=== PATIENT | male | born 1985 | race African-American/Black ===

== ENCOUNTER 2017-10-31 14:34 | Emergency (ER) | payer SELFPAY ==
[2017-10-31] MEDS: diazePAM 5 MG TABLET PO (16:47)
[2017-10-31] MEDS: HYDROcodone/APAP 5/325MG 1 TAB TABLET PO (16:47)
[2017-10-31] MEDS: NAPROXEN 500 MG TABLET PO (16:48)
[2017-10-31] MEDS: predniSONE 10 MG TABLET PO (16:48)
== END 2017-10-31 16:50 | disposition home or self-care (01) ==
LOC: ER 14:34
DX: M54.5 Low back pain (principal); M19.90 Unspecified osteoarthritis, unspecified site
CPT/HCPCS: 99284; J7512

== ENCOUNTER 2018-08-07 11:17 | Emergency (ER) | payer SELFPAY ==
[~2018-08-07] VITALS: Ht 182.9 cm; Wt 97.5 kg
[~2018-08-07 11:17] MED LIST: CYCL10TA2 PO; HYDR-3164 PO; METH4TAB2 PO; NAPR500T8 PO
[2018-08-07 11:44] VITALS: BP 106/68
[2018-08-07] MEDS ORDERED: KETOROLAC 60 MG/2 ML VIAL. IM ONE (12:30)
--- NOTE | 2018-08-07 13:01 | RAD ---
Examination: 2 views of the lumbar spine HISTORY: History of back injury, back pain COMPARISON: None available FINDINGS: The vertebral body heights appear to be maintained. No evidence of listhesis identified. Mild intervertebral disc height loss identified at L5-S1 vertebral level. The facets are well aligned. There is a 6.5 mm calcification projecting over the left renal shadow probably intrarenal collecting system calculus. IMPRESSION: 1. Mild degenerative changes L5-S1 vertebral level. 2. 6.5 mm calculus left kidney. Electronically signed by: Charli Sarah MD (08/07/2018 12:58 PM) [place] [id number]
[2018-08-07] MEDS ORDERED: CYCL5TAB PO (13:16)
[2018-08-07] MEDS ORDERED: MELO7.5T5 PO (13:16)
--- NOTE | 2018-08-07 13:17 | PHYS DOC ---
Past Medical History Past Medical History: Arthritis Past Surgical History: No Surgical History Additional Information: 0.25 PPD Alcohol Use: Occasionally Drug Use: None Adult General Chief Complaint Chief Complaint: BACK PAIN OR INJURY HPI HPI Patient is a 32 year old male who presents with low back pain 2 days after he lifted something heavy at work. He denies spontaneous loss of bowel or bladder, sound numbness or foot drop. He states that he has some chronic back pain issues. Review of Systems Review of Systems Constitutional: Denies fever or chills [] Eyes: Denies change in visual acuity, redness, or eye pain [] HENT: Denies nasal congestion or sore throat [] Respiratory: Denies cough or shortness of breath [] Cardiovascular: No additional information not addressed in HPI [] GI: Denies abdominal pain, nausea, vomiting, bloody stools or diarrhea [] : Denies dysuria or hematuria [] Musculoskeletal: See history of present illness Integument: Denies rash or skin lesions [] Neurologic: Denies headache, focal weakness or sensory changes [] Endocrine: Denies polyuria or polydipsia [] All other systems were reviewed and found to be within normal limits, except as documented in this note. Current Medications Current Medications Current Medications Medications (Trade) Dose Ordered Sig/Adis Start Time Stop Time Status Last Admin Dose Admin Ketorolac Tromethamine (Toradol Im) 60 mg 1X ONCE 08/07/18 12:30 08/07/18 12:31 DC 08/07/18 13:03 60 MG Allergies Allergies Allergies Coded Allergies Type Severity Reaction Last Updated Verified No Known Drug Allergies 10/31/17 No Physical Exam Physical Exam Constitutional: Well developed, well nourished, no acute distress, non-toxic appearance. [] Cardiovascular:Heart rate regular rhythm, no murmur [] Lungs & Thorax: Bilateral breath sounds clear to auscultation [] Abdomen: Bowel sounds normal, soft, no tenderness, no masses, no pulsatile masses. [] Skin: Warm, dry, no erythema, no rash. [] Back: No point spinal tenderness or step offs noted, no CVA tenderness. [] Extremities: No tenderness, no cyanosis, no clubbing, ROM intact, no edema. [] Neurologic: Alert and oriented X 3, normal motor function, normal sensory function, no focal deficits noted. [] Psychologic: Affect normal, judgement normal, mood normal. [] Current Patient Data Vital Signs Vital Signs Date Time Temp Pulse Resp B/P (MAP) Pulse Ox O2 Delivery O2 Flow Rate FiO2 08/07/18 11:44 96.8 73 20 106/68 (81) 98 Room Air 96.8 EKG EKG [] Radiology/Procedures Radiology/Procedures [] PATIENT: JONN RUSH ACCOUNT: [id number] : 1985 LOCATION: ER AGE: 32 SEX: M EXAM STATUS: REG ER ORD. PHYSICIAN: CELESTINE SANDERS APRN REASON: back pain to midspine PROCEDURE: LUMBAR SPINE 2-3V Examination: 2 views of the lumbar spine HISTORY: History of back injury, back pain COMPARISON: None available FINDINGS: The vertebral body heights appear to be maintained. No evidence of listhesis identified. Mild intervertebral disc height loss identified at L5-S1 vertebral level. The facets are well aligned. There is a 6.5 mm calcification projecting over the left renal shadow probably intrarenal collecting system calculus. IMPRESSION: 1. Mild degenerative changes L5-S1 vertebral level. 2. 6.5 mm calculus left kidney. Electronically signed by: Charli Sarah MD (08/07/2018 12:58 PM) [facility] DICTATED and SIGNED BY: CHARLI SARAH MD DATE: 08/07/18 1256 Course & Med Decision Making Course & Med Decision Making Pertinent Labs and Imaging studies reviewed. (See chart for details) []The patient was given Toradol in the emergency department for pain. Dragon Disclaimer Dragon Disclaimer This electronic medical record was generated, in whole or in part, using a voice recognition dictation system. Departure Departure Impression: Primary Impression: Back pain Disposition: 01 HOME, SELF-CARE Condition: STABLE Referrals: NO PCP (PCP) Patient Instructions: Chronic Back Pain Additional Instructions: Follow-up with primary care for further evaluation of this chronic pain. Take the medication as prescribed. Make sure you have food on your stomach when you take the Mobic. If worsening return to the emergency department. Scripts Meloxicam (MOBIC) 7.5 Mg Tablet 1 TAB PO DAILY for back pain, #30 TAB 1 Refill Prov: CELESTINE SANDERS APRN 08/07/18 Cyclobenzaprine Hcl (CYCLOBENZAPRINE HCL) 5 Mg Tablet 1 TAB PO QHS for back pain, #15 TAB Prov: CELESTINE SANDERS APRN 08/07/18 Attending Signature Attending Signature I have reviewed the PA/GRAPHITE PAN DRIER TENDER's note and plan of care. I was available for consultation as needed during the patient's visit in the emergency department. I agree with the clinical impression, plan, and disposition. CELESTINE SANDERS APRN Aug 07, 2018 13:17 DOMINGO GUO DO Aug 08, 2018 14:07
== END 2018-08-07 13:27 | disposition home or self-care (01) ==
LOC: ER 11:17
DX: M54.5 Low back pain (principal); G89.29 Other chronic pain; N20.0 Calculus of kidney; M47.897 Other spondylosis, lumbosacral region; F17.200 Nicotine dependence, unspecified, uncomplicated; M19.90 Unspecified osteoarthritis, unspecified site
CPT/HCPCS: 72100; 96372; 99283; J1885

== ENCOUNTER 2019-04-22 14:43 | Emergency (ER) | payer SELFPAY ==
[~2019-04-22] VITALS: Ht 180.3 cm; Wt 108.9 kg
[~2019-04-22 14:43] MED LIST changes: +CIPR500T94 PO; +CYCL5TAB PO; +MELO7.5T5 PO; +OXYC1TAB15 PO
[2019-04-22] MEDS ORDERED: IV NORMAL SALINE 1000ML BAG 1,000 ML IV SCH (15:25)
[2019-04-22] MEDS ORDERED: fentaNYL PF VIAL 100 MCG/2 ML VIAL IV ONE (15:30)
[2019-04-22 15:43] LABS: BASO # 0.1 x10^3/uL (0.0-0.2); BASO % 1 % (0-3); EOS # 0.2 x10^3/uL (0.0-0.7); EOS % 3 % (0-3); HEMATOCRIT 36.1 % (39.0-53.0); HEMOGLOBIN 12.4 g/dL (13.0-17.5); LYMPH # 2.4 x10^3/uL (1.0-4.8); LYMPH % 40 % (24-48); MEAN CORPUSCULAR HEMOGLOBIN 32 pg (25-35); MEAN CORPUSCULAR HGB CONC 34 g/dL (31-37); MEAN CORPUSCULAR VOLUME 93 fL (79-100); MONO # 0.5 x10^3/uL (0.0-1.1); MONO % 8 % (0-9); NEUT % 49 % (31-73); PLATELET COUNT 238 x10^3/uL (140-400); RED BLOOD COUNT 3.88 x10^6/uL (4.30-5.70); RED CELL DISTRIBUTION WIDTH 13.4 % (11.5-14.5); WHITE BLOOD COUNT 6.1 x10^3/uL (4.0-11.0)
[2019-04-22 15:55] LABS: CLARITY,URINE TURBID
--- NOTE | 2019-04-22 15:55 | RAD ---
KUB Clinical indications: Left kidney stone and stent placement 2 weeks ago. FINDINGS: Left ureteral stent is in place. There is a radiopaque stone of the proximal left ureter at the level of the L2 transverse process which measures 9 mm in size. Vascular calcifications are seen within the anatomic pelvis. Impression: 9 mm proximal left ureteral stone. Electronically signed by: David Yoo MD (04/22/2019 3:52 PM) [id number]
[2019-04-22 15:56] LABS: COLOR,URINE ORANGE
[2019-04-22 16:03] LABS: RBC,URINE TNTC /HPF (0-2); SQUAMOUS EPITHELIAL CELL,UR OCC /LPF
[2019-04-22 16:03] LABS: CALCIUM 8.6 mg/dL (8.5-10.1); CREATININE 1.2 mg/dL (0.7-1.3); GFR 83.9
[2019-04-22 16:04] LABS: BACTERIA,URINE 0 /HPF (0-FEW)
[2019-04-22 16:12] LABS: ALBUMIN 3.6 g/dL (3.4-5.0); TOTAL BILIRUBIN 0.3 mg/dL (0.2-1.0); TOTAL PROTEIN 7.2 g/dL (6.4-8.2)
[2019-04-22] MEDS ORDERED: KETOROLAC 30 MG/ML VIAL. IV ONE (17:00)
[2019-04-22] MEDS ORDERED: PHEN100T82 PO (17:02)
[2019-04-22] MEDS ORDERED: HYDR-3164 PO (17:02)
--- NOTE | 2019-04-22 17:02 | PHYS DOC ---
Past Medical History Past Medical History: Arthritis, Kidney Stone Past Surgical History: Other Additional Past Surgical Histo: RENAL STENTS Alcohol Use: Occasionally Drug Use: None Adult General Chief Complaint Chief Complaint: BLOOD IN [facility]INE [facility] HPI Patient is a 33 year old male with history of stent placement in left ureter on 04/[address] Mcclain who presents with complaining of left flank pain and urinary frequency. Patient complaining of increasing of left flank pain for the last 5 days as a constant and sharp pain with radiation to left lower quadrant and scrotal area without nausea and vomiting. Patient complaining of hematuria and urinary frequency that did not get better with [id number] Azo. Patient had prescription of hydrocodone given by his urologist but states he ran out of the medication and his pain 7 or 8. Review of Systems Review of Systems Constitutional: Denies fever or chills [] Eyes: Denies change in visual acuity, redness, or eye pain [] HENT: Denies nasal congestion or sore throat [] Respiratory: Denies cough or shortness of breath [] Cardiovascular: No additional information not addressed in HPI [] GI: Reports abdominal pain, denies nausea, vomiting, bloody stools or diarrhea [] : Reports urinary frequency and hematuria Musculoskeletal: Denies back pain or joint pain [] Integument: Denies rash or skin lesions [] Neurologic: Denies headache, focal weakness or sensory changes [] Endocrine: Denies polyuria or polydipsia [] All other systems were reviewed and found to be within normal limits, except as documented in this note. Current Medications Current Medications Current Medications Medications (Trade) Dose Ordered Sig/Adis Start Time Stop Time Status Last Admin Dose Admin Fentanyl Citrate (Fentanyl 2ml Vial) 50 mcg 1X ONCE 04/22/19 15:30 04/22/19 15:31 DC 04/22/19 15:47 50 MCG Ketorolac Tromethamine (Toradol 30mg Vial) 30 mg 1X ONCE 04/22/19 17:00 04/22/19 17:01 DC 04/22/19 16:51 30 MG Sodium Chloride 1,000 ml @ 1,000 mls/hr Q1H 04/22/19 15:25 04/22/19 16:24 DC 04/22/19 15:47 1,000 MLS/HR Allergies Allergies Allergies Coded Allergies Type Severity Reaction Last Updated Verified No Known Drug Allergies 10/31/17 No Physical Exam Physical Exam Constitutional: Well developed, well nourished, mild distress, non-toxic appearance. [] HENT: Normocephalic, atraumatic. Eyes: PERRLA, EOMI, conjunctiva normal, no discharge. [] Neck: Normal range of motion, no tenderness, supple, no stridor. [] Cardiovascular:Heart rate regular rhythm, no murmur [] Lungs & Thorax: Bilateral breath sounds clear to auscultation [] Abdomen: Bowel sounds normal, soft, no tenderness, no masses, no pulsatile masses. [] Skin: Warm, dry, no erythema, no rash. [] Back: No tenderness, no CVA tenderness. [] Extremities: No tenderness, no cyanosis, no clubbing, ROM intact, no edema. [] Neurologic: Alert and oriented X 3, no focal deficits noted. [] Psychologic: Affect normal, judgement normal, mood normal. [] Current Patient Data Vital Signs Vital Signs Date Time Temp Pulse Resp B/P (MAP) Pulse Ox O2 Delivery O2 Flow Rate FiO2 04/22/19 17:20 74 14 152/91 (111) 98 Room Air 04/22/19 15:23 98.3 98.3 Lab Values Laboratory Tests Test 04/22/19 15:20 04/22/19 15:35 Urine Collection Type Unknown Urine Color Bond Urine Clarity Turbid Urine pH Urine Specific [place] Urine Protein mg/dL (NEG-TRACE) Urine Glucose (UA) mg/dL (NEG) Urine Ketones (Stick) mg/dL (NEG) Urine Blood (NEG) Urine Nitrite (NEG) Urine Bilirubin (NEG) Urine Urobilinogen Dipstick mg/dL (0.2 mg/dL) Urine Leukocyte Esterase (NEG) Urine RBC Tntc /HPF (0-2) Urine WBC 5-10 /HPF (0-4) Urine Squamous Epithelial Cells Occ /LPF Urine Bacteria 0 /HPF (0-FEW) Urine Mucus Slight /LPF White Blood Count 6.1 x10^3/uL (4.0-11.0) Red Blood Count 3.88 x10^6/uL (4.30-5.70) L Hemoglobin 12.4 g/dL (13.0-17.5) L Hematocrit 36.1 % (39.0-53.0) L Mean Corpuscular Volume 93 fL (79-100) Mean Corpuscular Hemoglobin 32 pg (25-35) Mean Corpuscular Hemoglobin Concent 34 g/dL (31-37) Red Cell Distribution Width 13.4 % (11.5-14.5) Platelet Count 238 x10^3/uL (140-400) Neutrophils (%) (Auto) 49 % (31-73) Lymphocytes (%) (Auto) 40 % (24-48) Monocytes (%) (Auto) 8 % (0-9) Eosinophils (%) (Auto) 3 % (0-3) Basophils (%) (Auto) 1 % (0-3) Neutrophils # (Auto) 3.0 x10^3/uL (1.8-7.7) Lymphocytes # (Auto) 2.4 x10^3/uL (1.0-4.8) Monocytes # (Auto) 0.5 x10^3/uL (0.0-1.1) Eosinophils # (Auto) 0.2 x10^3/uL (0.0-0.7) Basophils # (Auto) 0.1 x10^3/uL (0.0-0.2) Sodium Level 142 mmol/L (136-145) Potassium Level 4.0 mmol/L (3.5-5.1) Chloride Level 108 mmol/L (98-107) H Carbon Dioxide Level 24 mmol/L (21-32) Anion Gap 10 (6-14) Blood Urea Nitrogen 17 mg/dL (8-26) Creatinine 1.2 mg/dL (0.7-1.3) Estimated GFR (Cockcroft-Gault) 83.9 BUN/Creatinine Ratio 14 (6-20) Glucose Level 94 mg/dL (70-99) Lactic Acid Level 1.0 mmol/L (0.4-2.0) Calcium Level 8.6 mg/dL (8.5-10.1) Total Bilirubin 0.3 mg/dL (0.2-1.0) Aspartate Amino Transferase (AST) 25 U/L (15-37) Alanine Aminotransferase (ALT) 45 U/L (16-63) Alkaline Phosphatase 54 U/L (46-116) Total Protein 7.2 g/dL (6.4-8.2) Albumin 3.6 g/dL (3.4-5.0) Albumin/Globulin Ratio 1.0 (1.0-1.7) Laboratory Tests 04/22/19 15:35 Laboratory Tests 04/22/19 15:35 EKG EKG [] Radiology/Procedures Radiology/Procedures [facility] [address] [place] [address] IMAGING REPORT Signed PATIENT: JONN RUSH ACCOUNT: [id number] : 1985 LOCATION: ER AGE: 33 SEX: M EXAM STATUS: REG ER ORD. PHYSICIAN: JOVAN HOLGUIN MD REASON: left kidney stone and stent placement x2 weeks ago. abdominal pain PROCEDURE: KUB KUB Clinical indications: Left kidney stone and stent placement 2 weeks ago. FINDINGS: Left ureteral stent is in place. There is a radiopaque stone of the proximal left ureter at the level of the L2 transverse process which measures 9 mm in size. Vascular calcifications are seen within the anatomic pelvis. Impression: 9 mm proximal left ureteral stone. Electronically signed by: Herbie Yoo MD (04/22/2019 3:52 PM) [id number] DICTATED and SIGNED BY: HERBIE YOO MD DATE: 04/22/19 155 Course & Med Decision Making Course & Med Decision Making Pertinent Labs and Imaging studies reviewed. (See chart for details) Evaluation of patient in ER showed 33-year-old male patient with history of stent placement of left ureter and complaining of increasing pain for the last few days. Patient had unremarkable physical exam and labs except for bloody urine. 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 Mcclain. I've spoken with the patient and/or caregivers. I've explained the patient's condition, diagnosis and treatment plan based on information available to me at this time. I've answered the patient's and/or caregivers questions and addressed any concerns. The patient and/or caregivers have a good understanding the patient's diagnosis, condition and treatment plan as can be expected at this point. Vital signs have been stabilized. The patient's condition is stable for discharge from the emergency department. The patient will pursue further outpatient evaluation with her primary care provider or other designated consulting physician as outlined in the discharge instructions. Patient and/or caregivers are agreeable to this plan of care and follow-up instructions have been explained in detail. The patient and/or caregivers have received these instructions in written format and expressed understanding of these discharge instructions. The patient and her caregivers are aware that if any significant change in condition or worsening of symptoms should prompt him to immediately return to this of the closest emergency department. If an emergent department is not readily available I would encourage him to call 911. Gavin Disclaimer Dragon Disclaimer This electronic medical record was generated, in whole or in part, using a voice recognition dictation system. Departure Departure Impression: Primary Impression: History of renal stent Additional Impressions: Ureterolithiasis Hematuria Urinary frequency Disposition: HOME, SELF-CARE (at 1659) Condition: IMPROVED Referrals: NO PCP (PCP) FIDELIA JEFFREY MD Patient Instructions: Diet for Kidney Stones, Kidney Stones, Ureteral Stent Additional Instructions: Drink plenty of liquids Follow-up with your primary care physician in 3-5 days Return to ER if not getting better Follow-up with your urologist in 2 days Scripts Phenazopyridine Hcl (PYRIDIUM) 100 Mg Tablet 100 MG PO TID for dysuria, #15 TAB Prov: JOVAN HOLGUIN MD 04/22/19 Hydrocodone/Apap 5-325 (NORCO 5-325 TABLET) 1 Each Tablet 1 TAB PO PRN Q6HRS PRN for PAIN, #14 TAB 0 Refills Prov: JOVAN HOLGUIN MD 04/22/19 Problem Qualifiers Additional Impressions: Hematuria Hematuria type: gross Qualified Codes: R31.0 - Gross hematuria JOVAN HOLGUIN MD Apr 22, 2019 17:02
[2019-04-22 17:20] VITALS: BP 152/91
== END 2019-04-22 17:20 | disposition home or self-care (01) ==
LOC: ER 14:43
DX: N20.1 Calculus of ureter (principal); M19.90 Unspecified osteoarthritis, unspecified site
CPT/HCPCS: 36415; 74018; 80053; 81001; 83605; 85025; 87086; 96374; 96375; 99285; J1885; J3010; J7030

== ENCOUNTER 2019-05-11 16:28 | Emergency (ER) | payer SELFPAY ==
[~2019-05-11] VITALS: Ht 180.3 cm; Wt 108.9 kg
[~2019-05-11 16:28] MED LIST changes: +PHEN100T82 PO
[2019-05-11 17:38] LABS: CLARITY,URINE TURBID; COLOR,URINE RED
[2019-05-11 17:48] LABS: RBC,URINE TNTC /HPF (0-2); WBC,URINE >40 /HPF (0-4)
[2019-05-11 17:55] LABS: BASO # 0.1 x10^3/uL (0.0-0.2); BASO % 1 % (0-3); EOS # 0.2 x10^3/uL (0.0-0.7); EOS % 3 % (0-3); HEMATOCRIT 35.6 % (39.0-53.0); HEMOGLOBIN 11.7 g/dL (13.0-17.5); LYMPH # 2.5 x10^3/uL (1.0-4.8); LYMPH % 34 % (24-48); MEAN CORPUSCULAR HEMOGLOBIN 31 pg (25-35); MEAN CORPUSCULAR HGB CONC 33 g/dL (31-37); MEAN CORPUSCULAR VOLUME 96 fL (79-100); MONO # 0.6 x10^3/uL (0.0-1.1); MONO % 9 % (0-9); NEUT # 3.9 x10^3/uL (1.8-7.7); NEUT % 53 % (31-73); PLATELET COUNT 260 x10^3/uL (140-400); RED BLOOD COUNT 3.71 x10^6/uL (4.30-5.70); RED CELL DISTRIBUTION WIDTH 13.8 % (11.5-14.5); WHITE BLOOD COUNT 7.4 x10^3/uL (4.0-11.0)
[2019-05-11 17:57] LABS: CALCIUM 9.2 mg/dL (8.5-10.1); CREATININE 1.6 mg/dL (0.7-1.3); GFR 60.2; POTASSIUM 4.5 mmol/L (3.5-5.1)
[2019-05-11] MEDS ORDERED: MORPHINE SULFATE 4 MG/ML VIAL. IV ONE (18:00)
[2019-05-11] MEDS ORDERED: ONDANSETRON PF 4 MG/2 ML VIAL. IV ONE (18:00)
[2019-05-11 18:03] LABS: ALBUMIN 4.1 g/dL (3.4-5.0); ALBUMIN/GLOBULIN RATIO 1.2 (1.0-1.7); TOTAL BILIRUBIN 1.1 mg/dL (0.2-1.0); TOTAL PROTEIN 7.4 g/dL (6.4-8.2)
--- NOTE | 2019-05-11 18:21 | PHYS DOC ---
Past Medical History Past Medical History: Arthritis, Kidney Stone (NISH JETER APRN) Past Surgical History: Other Additional Past Surgical Histo: RENAL STENTS (NISH JETER APRN) Alcohol Use: Occasionally Drug Use: Marijuana (NISH JETER APRN) Adult General Chief Complaint Chief Complaint: FLANK PAIN HPI HPI Patient is a 33 year old AA male who presents to the emergency department with complaints of flank pain, dysuria, and needing pain medication. Patient states that he has been having problems with kidney stones and flank pain for the last 9 months. He currently has a 9 mm obstructing kidney stone on the left. He states that he had a stent placed in his right ureter 3 weeks ago. He has been taking [id number] Azo for relief of dysuria symptoms. He denies any fever or decrease in urine output. He denies any irregular penile discharge. He currently rates his pain 10 out of 10 on the pain scale, there are no alleviating factors. HE is scheduled for a lithotripsy here next Monday with Dr. Pierre. ROS Patient denies any fever decreased urine output, change in hematuria, nausea, vomiting, diarrhea. Denies any chest pain, cough, shortness of breath, wheezing, or abdominal pain. All other ROS is neg unless otherwise noted in HPI. [] (NISH JETER APRN) Review of Systems Review of Systems See Above (NISH JETER APRN) Current Medications Current Medications Current Medications Medications (Trade) Dose Ordered Sig/Adis Start Time Stop Time Status Last Admin Dose Admin Fentanyl Citrate (Fentanyl 2ml Vial) 75 mcg 1X ONCE 05/11/19 18:30 05/11/19 18:31 DC 05/11/19 18:32 75 MCG Morphine Sulfate (Morphine Sulfate) 4 mg 1X ONCE 05/11/19 18:00 05/11/19 18:01 DC 05/11/19 17:42 4 MG Ondansetron HCl (Zofran) 4 mg 1X ONCE 05/11/19 18:00 05/11/19 18:01 DC 05/11/19 17:42 4 MG (JOSUE ARNETT MD) Allergies Allergies Allergies Coded Allergies Type Severity Reaction Last Updated Verified No Known Drug Allergies 05/11/19 No (JOSUE ARNETT MD) Physical Exam Physical Exam See Above Constitutional: Well developed, well nourished, no acute distress, non-toxic appearance. [] HENT: Normocephalic, atraumatic, bilateral external ears normal, nose normal. [] Eyes: PERRLA, EOMI, conjunctiva normal, no discharge. [] Neck: Normal range of motion, no stridor. [] Cardiovascular:Heart rate regular rhythm, no murmur [] Lungs & Thorax: Bilateral breath sounds clear to auscultation [] Abdomen: soft, no tenderness, no masses, no pulsatile masses. [] Skin: Warm, dry, no erythema, no rash. [] Back: no bony tenderness Extremities: No cyanosis, ROM intact, no edema. [] Neurologic: Alert and oriented X 3, no focal deficits noted. [] Psychologic: Affect normal, judgement normal, mood normal. [] (NISH JETER APRN) Current Patient Data Vital Signs Vital Signs Date Time Temp Pulse Resp B/P (MAP) Pulse Ox O2 Delivery O2 Flow Rate FiO2 05/11/19 18:32 18 94 Room Air 05/11/19 18:30 70 112/65 (81) 05/11/19 16:40 97.6 97.6 (JOSUE ARNETT MD) Lab Values Laboratory Tests Test 05/11/19 16:35 05/11/19 17:37 Urine Collection Type Unknown Urine Color Red Urine Clarity Turbid Urine pH Urine Specific [place] Urine Protein mg/dL (NEG-TRACE) Urine Glucose (UA) mg/dL (NEG) Urine Ketones (Stick) mg/dL (NEG) Urine Blood (NEG) Urine Nitrite (NEG) Urine Bilirubin (NEG) Urine Urobilinogen Dipstick mg/dL (0.2 mg/dL) Urine Leukocyte Esterase (NEG) Urine RBC Tntc /HPF (0-2) Urine WBC >40 /HPF (0-4) Urine Bacteria /HPF (0-FEW) White Blood Count 7.4 x10^3/uL (4.0-11.0) Red Blood Count 3.71 x10^6/uL (4.30-5.70) L Hemoglobin 11.7 g/dL (13.0-17.5) L Hematocrit 35.6 % (39.0-53.0) L Mean Corpuscular Volume 96 fL (79-100) Mean Corpuscular Hemoglobin 31 pg (25-35) Mean Corpuscular Hemoglobin Concent 33 g/dL (31-37) Red Cell Distribution Width 13.8 % (11.5-14.5) Platelet Count 260 x10^3/uL (140-400) Neutrophils (%) (Auto) 53 % (31-73) Lymphocytes (%) (Auto) 34 % (24-48) Monocytes (%) (Auto) 9 % (0-9) Eosinophils (%) (Auto) 3 % (0-3) Basophils (%) (Auto) 1 % (0-3) Neutrophils # (Auto) 3.9 x10^3/uL (1.8-7.7) Lymphocytes # (Auto) 2.5 x10^3/uL (1.0-4.8) Monocytes # (Auto) 0.6 x10^3/uL (0.0-1.1) Eosinophils # (Auto) 0.2 x10^3/uL (0.0-0.7) Basophils # (Auto) 0.1 x10^3/uL (0.0-0.2) Sodium Level 141 mmol/L (136-145) Potassium Level 4.5 mmol/L (3.5-5.1) Chloride Level 106 mmol/L (98-107) Carbon Dioxide Level 23 mmol/L (21-32) Anion Gap 12 (6-14) Blood Urea Nitrogen 27 mg/dL (8-26) H Creatinine 1.6 mg/dL (0.7-1.3) H Estimated GFR (Cockcroft-Gault) 60.2 BUN/Creatinine Ratio 17 (6-20) Glucose Level 87 mg/dL (70-99) Calcium Level 9.2 mg/dL (8.5-10.1) Total Bilirubin 1.1 mg/dL (0.2-1.0) H Aspartate Amino Transferase (AST) 22 U/L (15-37) Alanine Aminotransferase (ALT) 37 U/L (16-63) Alkaline Phosphatase 63 U/L (46-116) Total Protein 7.4 g/dL (6.4-8.2) Albumin 4.1 g/dL (3.4-5.0) Albumin/Globulin Ratio 1.2 (1.0-1.7) Laboratory Tests 05/11/19 17:37 Laboratory Tests 05/11/19 17:37 (JOSUE ARNETT MD) EKG EKG [] (NISH JETER APRN) Radiology/Procedures Radiology/Procedures [] (NISH JETER APRN) Course & Med Decision Making Course & Med Decision Making Pertinent Labs and Imaging studies reviewed. (See chart for details) dx: UTI, dysuria Patient was given 4 mg of morphine and 4 mg of Zofran for pain, this medication did not seem to help his pain very much, so 75 mcg of fentanyl was given and patient reported pain control with that medication. HE was not given any IV Toradol as requested due to increased BUN/creatinine levels. The patient denied any decrease in urination, he reports increased frequency of urination. I will discharge the patient with a prescription for Keflex, and hydrocodone. Patient instructed to follow-up for his procedure on Monday as reported. Return to the ER if symptoms worsen. Patient verbalized an understanding of home care, medications, follow-up, and return to ED instructions and was in agreement with the plan of care. (NISH JETER APRN) Dragon Disclaimer Dragon Disclaimer This electronic medical record was generated, in whole or in part, using a voice recognition dictation system. (NISH JETER APRN) Departure Departure Impression: Primary Impression: Dysuria Additional Impressions: Urinary tract infection Bilateral flank pain Disposition: HOME, SELF-CARE Condition: STABLE Referrals: NO PCP (PCP) Patient Instructions: Dysuria-Brief, Urinary Tract Infection, [id number] Additional Instructions: Fill the prescriptions and take them as directed. Follow-up with Dr. Pierre next Monday as planned. Return to the ER if your symptoms worsen or he develop a fever, or decreased urine output. Scripts Cephalexin (KEFLEX) 500 Mg Capsule 1 CAP PO TID for 7 Days, #21 CAP 0 Refills Prov: NISH JETER APRN 05/11/19 Phenazopyridine Hcl (PYRIDIUM) 100 Mg Tablet 100 MG PO TID for 5 Days, #15 TAB 0 Refills Prov: NISH JETER APRN 05/11/19 Hydrocodone Bit/Acetaminophen (HYDROCODONE-APAP 5-325 ) 1 Tab Tablet 1 TAB PO PRN Q6HRS PRN for PAIN for 3 Days, #12 TAB 0 Refills Prov: NISH JETER APRN 05/11/19 Attending Signature I have participated in the care of this patient and I have reviewed and agree with all pertinent clinical information above including history, exam, and recommendations. (JOSUE ARNETT MD) Problem Qualifiers Additional Impressions: Urinary tract infection Urinary tract infection type: site unspecified Hematuria presence: with hematuria Qualified Codes: N39.0 - Urinary tract infection, site not specified; R31.9 - Hematuria, unspecified NISH JETER APRN May 11, 2019 18:21 JOSUE ARNETT MD May 11, 2019 19:34
[2019-05-11] MEDS ORDERED: fentaNYL PF VIAL 100 MCG/2 ML VIAL IV ONE (18:30)
[2019-05-11] MEDS ORDERED: PHEN100T82 PO (18:59)
[2019-05-11] MEDS ORDERED: CEPH-264 PO (18:59)
[2019-05-11] MEDS ORDERED: HYDR-2761 PO (18:59)
[2019-05-11 19:45] VITALS: BP 119/66
== END 2019-05-11 19:06 | disposition home or self-care (01) ==
LOC: ER 16:28
DX: N39.0 Urinary tract infection, site not specified (principal); R10.9 Unspecified abdominal pain; M19.90 Unspecified osteoarthritis, unspecified site; Z87.442 Personal history of urinary calculi
CPT/HCPCS: 36415; 80053; 81001; 85025; 87086; 96374; 96375; 99284; J2270; J2405; J3010

== ENCOUNTER 2019-05-14 08:29 | Day surgery (SDC) | payer SELFPAY ==
[~2019-05-14 08:29] MED LIST changes: +CEPH-264 PO; +HYDR-2761 PO; +HYDROmorphone 2 MG/ML VIAL IV PRN; +IV RINGERS,LACTATED 1000ML 1,000 ML IV SCH; +MORPHINE SULFATE 2 MG/ML VIAL. IV PRN; +ONDANSETRON PF 4 MG/2 ML VIAL. IV PRN; +fentaNYL PF VIAL 100 MCG/2 ML VIAL IV PRN
[2019-05-14] MEDS ORDERED: PROPOFOL 20 ML IV ONE (09:55)
[2019-05-14] MEDS ORDERED: DEXAMETHASONE SOD PHOS 4 MG/ML VIAL ONE (09:55)
[2019-05-14] MEDS ORDERED: LIDOCAINE 2% PF 5 ML VIAL. ONE (09:55)
[2019-05-14] MEDS ORDERED: ONDANSETRON PF 4 MG/2 ML VIAL. ONE (09:55)
[2019-05-14] MEDS ORDERED: MIDAZOLAM HCL/PF 2 MG/2 ML VIAL. ONE (09:56)
[2019-05-14] MEDS ORDERED: fentaNYL PF VIAL 100 MCG/2 ML VIAL ONE ×2 (09:56→12:51)
[2019-05-14] MEDS ORDERED: IOHEXOL 300 MG/ML 50 ML VIAL. ONE (09:56)
[2019-05-14] MEDS ORDERED: LIDOCAINE 2% JELLY 6ML IN APPLICATOR. ONE (09:56)
[2019-05-14] MEDS: fentaNYL PF VIAL 100 MCG/2 ML VIAL IV PRN ×3 (10:12→13:16)
[2019-05-14] MEDS ORDERED: ceFAZolin SODIUM 1 GM VIAL ONE (11:16)
[2019-05-14] MEDS ORDERED: SEVOFLURANE 61 TO 120 MINUTES. IH ONE (11:16)
[2019-05-14] MEDS ORDERED: PHENYLEPHRINE in 0.9% NACL PF 1 MG/10 ML SYRINGE. IV ONE (11:35)
[2019-05-14] MEDS ORDERED: KETOROLAC 30 MG/ML VIAL. ONE (12:00)
--- NOTE | 2019-05-14 12:14 | PDOC4 ---
OPERATIVE NOTE Date: Date: May 14, 2019 Pre-Op Diagnosis: L prox Uret Calc Post-Op Diagnosis: same Procedure Performed: cysto, L ureteroscopy, laser-tripsy, stent placement Surgeon: Blu Anesthesia Type: Gen Blood Loss: 10cc Specimans Obtained: none Findings: bulbous stx of urethra, impacted 10mm stone in prox L ureter Complications: none Operative Note: GA, lithot;y pos'n; Ancef admin'd; prep and drape un usual fashion Cysto w 21 Fr scope and stent removed from L UO; A guide wire was inserted thr L UO into renal pelvis; Attempt to pass the flex scope over the wire unsuccessful at passing into the distal L ureter; The ureteral access sheath was then used over the wire to dilate the distal ureter and place the access sheath. The guidewire was removed and flex ureteroscopy was performed demostrating a large impacted stone in prox ureter. The 270micron laser fiber was used to fragment the stone into numerous small fragments. REnoscopy was performed and there were no sizable fragments in the renal pelvis or calyces. The prox ureter had several tiny fragments upon withdrawal of scope. The scope was removed after placing a guidewire into the renal pelvis. After removal of uret'scope, the cysto scope was re-inroduced and the wire was back-loaded thry the scope in usual fashion. A 6 x 26 Polaris stent w string was then passed over the wire into the prox abena system under fluoro cx. The bladder was emptied and a final shot revealed the stent to be in good pos'n. The string was taped to the penis in usual fashion and the pt was awakened and transferred to . Disp: HOme after RR Rx's Cipro and Lortab Pt to call office for appt for stent removaal next week. FIDELIA JEFFREY MD May 14, 2019 12:14
[2019-05-14] MEDS ORDERED: PROCHLORPERAZINE 10 MG/2 ML VIAL. ONE (13:09)
[2019-05-14] MEDS: PROCHLORPERAZINE 10 MG/2 ML VIAL. IV PRN ×2 (13:13→13:35)
[2019-05-14] MEDS ORDERED: HYDR-3164 PO (14:26)
[2019-05-14] MEDS ORDERED: CIPR250T PO (14:28)
[2019-05-14 14:55] VITALS: BP 118/55
== END 2019-05-14 15:48 | disposition home or self-care (01) ==
LOC: SURG 08:29
PROVIDERS: ATTEND Urology
DX: N20.1 Calculus of ureter (principal); Z91.013 Allergy to seafood
CPT/HCPCS: 52356; 76000; A7015; C1769; C2617; J0690; J0780; J1100; J1885; J2001; J2250; J2370; J2405; J2704; J3010; J0696; Q9967

== ENCOUNTER 2019-05-20 11:38 | Emergency (ER) | payer SELFPAY ==
[~2019-05-20] VITALS: Ht 180.3 cm; Wt 106.6 kg
[~2019-05-20 11:38] MED LIST changes: +CIPR250T PO; -HYDROmorphone 2 MG/ML VIAL IV PRN; -IV RINGERS,LACTATED 1000ML 1,000 ML IV SCH; -MORPHINE SULFATE 2 MG/ML VIAL. IV PRN; -ONDANSETRON PF 4 MG/2 ML VIAL. IV PRN; -fentaNYL PF VIAL 100 MCG/2 ML VIAL IV PRN
[2019-05-20 12:15] VITALS: BP 135/76
--- NOTE | 2019-05-20 12:45 | PHYS DOC ---
Past Medical History Past Medical History: Arthritis, Kidney Stone Past Surgical History: Other Additional Past Surgical Histo: RENAL STENTS Alcohol Use: Occasionally Drug Use: Marijuana Adult General Chief Complaint Chief Complaint: FLANK PAIN HPI HPI Patient is a 33 year old male who presents with complaint of left flank pain. Patient had left stent removal today after cystoscopy and lithotripsy for 10 mm stone left ureter with stent placement. Patient was told he is going to have pain but his pain was 10 over 10 that decreased to 7/10 after taking one hyd rocodone. Patient has prescription of hydrocodone by his urologist. Review of Systems Review of Systems Constitutional: Denies fever or chills [] Eyes: Denies change in visual acuity, redness, or eye pain [] HENT: Denies nasal congestion or sore throat [] Respiratory: Denies cough or shortness of breath [] Cardiovascular: No additional information not addressed in HPI [] GI: Denies abdominal pain, nausea, vomiting, bloody stools or diarrhea [] : Denies dysuria or hematuria, reports back pain[] Musculoskeletal: Denies back pain or joint pain [] Integument: Denies rash or skin lesions [] Neurologic: Denies headache, focal weakness or sensory changes [] Endocrine: Denies polyuria or polydipsia [] All other systems were reviewed and found to be within normal limits, except as documented in this note. Current Medications Current Medications Current Medications Medications (Trade) Dose Ordered Sig/Adis Start Time Stop Time Status Last Admin Dose Admin Acetaminophen/ Hydrocodone Bitart (Lortab 5/325) 1 tab 1X ONCE 05/20/19 12:45 05/20/19 12:46 DC Allergies Allergies Allergies Coded Allergies Type Severity Reaction Last Updated Verified No Known Drug Allergies 05/14/19 No Physical Exam Physical Exam Constitutional: Well developed, well nourished, mild distress, non-toxic appearance. [] HENT: Normocephalic, atraumatic. Eyes: PERRLA, EOMI, conjunctiva normal, no discharge. [] Neck: Normal range of motion, no tenderness, supple, no stridor. [] Cardiovascular:Heart rate regular rhythm, no murmur [] Lungs & Thorax: Bilateral breath sounds clear to auscultation [] Abdomen: Bowel sounds normal, soft, no tenderness, no masses, no pulsatile masses. [] Skin: Warm, dry, no erythema, no rash. [] Back: No tenderness, no CVA tenderness. [] Extremities: No tenderness, no cyanosis, no clubbing, ROM intact, no edema. [] Neurologic: Alert and oriented X 3, no focal deficits noted. [] Psychologic: Affect normal, judgement normal, mood normal. [] Current Patient Data Vital Signs Vital Signs Date Time Temp Pulse Resp B/P (MAP) Pulse Ox O2 Delivery O2 Flow Rate FiO2 05/20/19 12:15 98.3 60 16 135/76 (95) 94 Room Air 98.3 EKG EKG [] Radiology/Procedures Radiology/Procedures [] Course & Med Decision Making Course & Med Decision Making Evaluation of patient in ER showed 33-year-old male patient who had left flank pain after removing of urostomy stent that improved with taking hydrocodone. Patient had 1 more hydrocodone in ER. Patient has prescription for hydrocodone and was advised to continue his medication. Dragon Disclaimer Dragon Disclaimer This electronic medical record was generated, in whole or in part, using a voice recognition dictation system. Departure Departure Impression: Primary Impression: Left flank pain Disposition: HOME, SELF-CARE (at 1244) Condition: STABLE Referrals: NO PCP (PCP) Patient Instructions: Flank Pain Additional Instructions: Drink plenty of liquids Follow-up with your primary care physician in 3-5 days Return to ER if not getting better Continue home pain medication JOVAN HOLGUIN MD May 20, 2019 12:45
[2019-05-20] MEDS: HYDROcodone/APAP 5/325MG 1 TAB TABLET PO ONE (13:02)
== END 2019-05-20 13:05 | disposition home or self-care (01) ==
LOC: ER 11:38
DX: R10.9 Unspecified abdominal pain (principal); M19.90 Unspecified osteoarthritis, unspecified site; Z87.442 Personal history of urinary calculi
CPT/HCPCS: 99282